=== PATIENT | male | born 1955 | race Caucasian/White ===

== ENCOUNTER 2020-09-18 10:05 | Emergency (ER) | payer OTHER ==
[2020-09-18 10:12] VITALS: RESP 18; TEMP 98
--- NOTE | 2020-09-18 10:58 | ED ---
General Adult HPI - General Chief complaint: Dizziness Stated complaint: Chest pain, near syncope Time Seen by Provider: 09/18/20 10:10 Source: patient, RN notes reviewed, old records reviewed Mode of arrival: ambulatory Limitations: no limitations - History of Present Illness Initial comments: 64-year-old male presenting for evaluation of intermittent chest pain over the past several weeks. He had an episode this morning that woke him from sleep. T his sharp left-sided chest pain which became L and nonspecific. He has no known history of coronary artery disease. No known history of DVT or PE. He is otherwise quite healthy. He states that he's felt unwell for several months and believes he had coronavirus approximately 2 months ago. He was not tested at that time. He denies fever or cough currently. He denies abdominal pain nausea vomiting. He does also feel lightheaded and dizzy. Denies unilateral numbness or weakness. - Related Data Home Medications Medication Instructions Recorded Confirmed [id number] 2 tab PO Q6HR PRN 09/18/20 09/18/20 [Excedrin] Fluticasone Nasal [place] [Flonase 2 spr EA NOSTRIL DAILY 09/18/20 09/18/20 Nasal [place]] Gabapentin [Neurontin] 200 mg PO TID PRN 09/18/20 09/18/20 Loratadine 10 mg PO AC-BRKFST 09/18/20 09/18/20 Multivitamins, Thera [Multivitamin 1 tab PO DAILY 09/18/20 09/18/20 (formulary)] Allergies Allergy/AdvReac Type Severity Reaction Status Date / Time hydrocodone AdvReac Head pain Verified 09/18/20 12:02 tramadol [From Ultram] AdvReac Head pain Verified 09/18/20 12:02 Review of Systems ROS Statement: Those systems with pertinent positive or pertinent negative responses have been documented in the HPI. ROS Other: All systems not noted in ROS Statement are negative. Past Medical History Additional Past Medical History / Comment(s): neuropathy, vertigo History of Any Multi-Drug Resistant Organisms: None Reported Past Surgical History: Cholecystectomy, Hernia Repair, Tonsillectomy Additional Past Surgical History / Comment(s): renal, B inguinial hernia Past Psychological History: No Psychological Hx Reported Smoking Status: Never smoker Past Alcohol Use History: None Reported Past Drug Use History: None Reported General Exam Limitations: no limitations General appearance: alert, in no apparent distress Head exam: Present: atraumatic, normocephalic Eye exam: Present: normal appearance, PERRL ENT exam: Present: normal exam. Absent: TM's normal bilaterally (Trace left effusion) Respiratory exam: Present: normal lung sounds bilaterally. Absent: respiratory distress, wheezes, rales, rhonchi, chest wall tenderness Cardiovascular Exam: Present: regular rate, normal rhythm GI/Abdominal exam: Present: soft. Absent: distended, tenderness, guarding, rebound Extremities exam: Present: normal inspection, normal capillary refill. Absent: pedal edema, calf tenderness Neurological exam: Present: alert, oriented X3, CN II-XII intact. Absent: motor sensory deficit Psychiatric exam: Present: normal affect, normal mood Skin exam: Present: warm, dry, intact. Absent: cyanosis, diaphoretic Course Vital Signs 09/18/20 09/18/20 10:09 11:13 Temperature 98 F Pulse Rate 84 70 Respiratory 18 18 Rate Blood Pressure 160/97 154/88 O2 Sat by Pulse 95 Oximetry EKG Findings - EKG Comments: EKG Findings:: EKG: Normal sinus rhythm with right bundle-branch block, no ST segment elevation, rate of 68, IA interval 142, QRS duration 138, QTC 467, no old for comparison. Medical Decision Making - Medical Decision Making 64-year-old male with presented with chest pain over the past several weeks. Patient believes that he did have coronavirus about 2 months ago. He denies current chest pain at the time my evaluation but has had some lightheadedness and dizziness. His stable vitals, he has a nonfocal neurologic exam. EKG showing a right bundle branch block with no comparison from prior. He has a normal CBC, normal CMP, he has a mildly elevated d-dimer 0.78. And CT angiogr aphy is performed which is negative for PE, showing 3 separate subcentimeter lung nodules which the patient is aware of from prior imaging. He has a negative initial troponin. We did discuss the possibility of admission for further evaluation, echo, cardiology consultation. Patient prefers discharge at this time. Second troponin is repeated which is also negative. Patient is given return parameters. He will follow with his primary care physician regarding both his symptoms and the lung nodule seen on CT. The patient is provided with CT imaging. - Lab Data Result diagrams: 09/18/20 11:04 09/18/20 11:03 Lab Results 09/18/20 09/18/20 09/18/20 Range/Units 11:03 11:03 11:03 WBC (3.8-10.6) k/uL RBC (4.30-5.90) m/uL Hgb (13.0-17.5) gm/dL Hct (39.0-53.0) % MCV (80.0-100.0) fL MCH (25.0-35.0) pg MCHC (31.0-37.0) g/dL RDW (11.5-15.5) % Plt Count (150-450) k/uL MPV Neutrophils % % Lymphocytes % % Monocytes % % Eosinophils % % Basophils % % Neutrophils # (1.3-7.7) k/uL Lymphocytes # (1.0-4.8) k/uL Monocytes # (0-1.0) k/uL Eosinophils # (0-0.7) k/uL Basophils # (0-0.2) k/uL PT 10.1 (9.0-12.0) sec INR 0.9 (<1.2) APTT 23.1 (22.0-30.0) sec D-Dimer 0.78 H (<0.60) mg/L FEU Sodium 141 (137-145) mmol/L Potassium 4.4 (3.5-5.1) mmol/L Chloride 107 (98-107) mmol/L Carbon Dioxide 28 (22-30) mmol/L Anion Gap 6 mmol/L BUN 18 (9-20) mg/dL Creatinine 1.16 (0.66-1.25) mg/dL Est GFR (CKD-EPI)AfAm 78 (>60 ml/min/1.73 sqM) Est GFR (CKD-EPI)NonAf 68 (>60 ml/min/1.73 sqM) Glucose 105 H (74-99) mg/dL Calcium 9.7 (8.4-10.2) mg/dL Magnesium 1.9 (1.6-2.3) mg/dL Total Bilirubin 0.5 (0.2-1.3) mg/dL AST 52 (17-59) U/L ALT 41 (4-49) U/L Alkaline Phosphatase 60 (38-126) U/L Troponin I <0.012 (0.000-0.034) ng/mL NT-Pro-B Natriuret Pep pg/mL Total Protein 7.7 (6.3-8.2) g/dL Albumin 4.5 (3.5-5.0) g/dL Lipase 143 (23-300) U/L Urine Color Urine Appearance (Clear) Urine pH (5.0-8.0) Ur Specific [place] (1.001-1.035) Urine Protein (Negative) Urine Glucose (UA) (Negative) Urine Ketones (Negative) Urine Blood (Negative) Urine Nitrite (Negative) Urine Bilirubin (Negative) Urine Urobilinogen (<2.0) mg/dL Ur Leukocyte Esterase (Negative) 09/18/20 09/18/20 09/18/20 Range/Units 11:03 11:04 11:41 WBC 5.6 (3.8-10.6) k/uL RBC 5.26 (4.30-5.90) m/uL Hgb 16.9 (13.0-17.5) gm/dL Hct 48.7 (39.0-53.0) % MCV 92.4 (80.0-100.0) fL MCH 32.1 (25.0-35.0) pg MCHC 34.7 (31.0-37.0) g/dL RDW 12.9 (11.5-15.5) % Plt Count 242 (150-450) k/uL MPV 7.0 Neutrophils % 60 % Lymphocytes % 22 % Monocytes % 9 % Eosinophils % 6 % Basophils % 1 % Neutrophils # 3.3 (1.3-7.7) k/uL Lymphocytes # 1.2 (1.0-4.8) k/uL Monocytes # 0.5 (0-1.0) k/uL Eosinophils # 0.3 (0-0.7) k/uL Basophils # 0.1 (0-0.2) k/uL PT (9.0-12.0) sec INR (<1.2) APTT (22.0-30.0) sec D-Dimer (<0.60) mg/L FEU Sodium (137-145) mmol/L Potassium (3.5-5.1) mmol/L Chloride (98-107) mmol/L Carbon Dioxide (22-30) mmol/L Anion Gap mmol/L BUN (9-20) mg/dL Creatinine (0.66-1.25) mg/dL Est GFR (CKD-EPI)AfAm (>60 ml/min/1.73 sqM) Est GFR (CKD-EPI)NonAf (>60 ml/min/1.73 sqM) Glucose (74-99) mg/dL Calcium (8.4-10.2) mg/dL Magnesium (1.6-2.3) mg/dL Total Bilirubin (0.2-1.3) mg/dL AST (17-59) U/L ALT (4-49) U/L Alkaline Phosphatase (38-126) U/L Troponin I (0.000-0.034) ng/mL NT-Pro-B Natriuret Pep 40 pg/mL Total Protein (6.3-8.2) g/dL Albumin (3.5-5.0) g/dL Lipase (23-300) U/L Urine Color Yellow Urine Appearance Clear (Clear) Urine pH 7.0 (5.0-8.0) Ur Specific [place] 1.027 (1.001-1.035) Urine Protein Trace H (Negative) Urine Glucose (UA) Negative (Negative) Urine Ketones Negative (Negative) Urine Blood Negative (Negative) Urine Nitrite Negative (Negative) Urine Bilirubin Negative (Negative) Urine Urobilinogen <2.0 (<2.0) mg/dL Ur Leukocyte Esterase Negative (Negative) 09/18/20 Range/Units 13:46 WBC (3.8-10.6) k/uL RBC (4.30-5.90) m/uL Hgb (13.0-17.5) gm/dL Hct (39.0-53.0) % MCV (80.0-100.0) fL MCH (25.0-35.0) pg MCHC (31.0-37.0) g/dL RDW (11.5-15.5) % Plt Count (150-450) k/uL MPV Neutrophils % % Lymphocytes % % Monocytes % % Eosinophils % % Basophils % % Neutrophils # (1.3-7.7) k/uL Lymphocytes # (1.0-4.8) k/uL Monocytes # (0-1.0) k/uL Eosinophils # (0-0.7) k/uL Basophils # (0-0.2) k/uL PT (9.0-12.0) sec INR (<1.2) APTT (22.0-30.0) sec D-Dimer (<0.60) mg/L FEU Sodium (137-145) mmol/L Potassium (3.5-5.1) mmol/L Chloride (98-107) mmol/L Carbon Dioxide (22-30) mmol/L Anion Gap mmol/L BUN (9-20) mg/dL Creatinine (0.66-1.25) mg/dL Est GFR (CKD-EPI)AfAm (>60 ml/min/1.73 sqM) Est GFR (CKD-EPI)NonAf (>60 ml/min/1.73 sqM) Glucose (74-99) mg/dL Calcium (8.4-10.2) mg/dL Magnesium (1.6-2.3) mg/dL Total Bilirubin (0.2-1.3) mg/dL AST (17-59) U/L ALT (4-49) U/L Alkaline Phosphatase (38-126) U/L Troponin I <0.012 (0.000-0.034) ng/mL NT-Pro-B Natriuret Pep pg/mL Total Protein (6.3-8.2) g/dL Albumin (3.5-5.0) g/dL Lipase (23-300) U/L Urine Color Urine Appearance (Clear) Urine pH (5.0-8.0) Ur Specific [place] (1.001-1.035) Urine Protein (Negative) Urine Glucose (UA) (Negative) Urine Ketones (Negative) Urine Blood (Negative) Urine Nitrite (Negative) Urine Bilirubin (Negative) Urine Urobilinogen (<2.0) mg/dL Ur Leukocyte Esterase (Negative) Disposition Clinical Impression: Chest pain, Pulmonary nodule Disposition: HOME SELF-CARE Condition: Good Instructions (If sedation given, give patient instructions): Chest Pain (ED), Pulmonary Nodules (ED) Additional Instructions: Please follow up with your primary care physician. Please return to the emergency department with any worsening or changing symptoms. Is patient prescribed a controlled substance at d/c from ED?: No Referrals: Robert Domínguez DO [Primary Care Provider] - 1-2 days Time of Disposition: 14:51
[2020-09-18 11:24] LABS: Basophils # (A) 0.1 k/uL (0-0.2); Basophils % (A) 1 %; Eosinophils # (A) 0.3 k/uL (0-0.7); Eosinophils % (A) 6 %; HCT 48.7 % (39.0-53.0); HGB 16.9 gm/dL (13.0-17.5); Lymphocytes # (A) 1.2 k/uL (1.0-4.8); Lymphocytes % (A) 22 %; MCH 32.1 pg (25.0-35.0); MCHC 34.7 g/dL (31.0-37.0); MCV 92.4 fL (80.0-100.0); Monocytes # (A) 0.5 k/uL (0-1.0); Monocytes % (A) 9 %; Neutrophils # (A) 3.3 k/uL (1.3-7.7); Neutrophils % (A) 60 %; Platelet Count 242 k/uL (150-450); RBC 5.26 m/uL (4.30-5.90); RDW 12.9 % (11.5-15.5); WBC 5.6 k/uL (3.8-10.6)
[2020-09-18 11:37] LABS: Albumin 4.5 g/dL (3.5-5.0); Calcium 9.7 mg/dL (8.4-10.2); Magnesium 1.9 mg/dL (1.6-2.3); Potassium 4.4 mmol/L (3.5-5.1); Total Bilirubin 0.5 mg/dL (0.2-1.3); Total Protein 7.7 g/dL (6.3-8.2)
[2020-09-18 11:46] LABS: INR 0.9 (<1.2); Partial Thromboplastin Time 23.1 sec (22.0-30.0); Prothrombin Time 10.1 sec (9.0-12.0)
[2020-09-18 11:51] LABS: Appearance,Urine Clear (Clear); Bilirubin,Urine Negative (Negative); Blood,Urine Negative (Negative); Color,Urine Yellow; Glucose,Urine (UA) Negative (Negative); Ketones,Urine Negative (Negative); Leukocyte Esterase,Urine Negative (Negative); Nitrite,Urine Negative (Negative); Protein,Urine Trace (Negative); Specific Gravity,Urine 1.027 (1.001-1.035); Urobilinogen,Urine <2.0 mg/dL (<2.0)
[2020-09-18 12:00] LABS: D-Dimer 0.78 mg/L FEU (<0.60)
--- NOTE | 2020-09-18 12:44 | XR ---
EXAMINATION TYPE: XR chest 2V DATE OF EXAM: 09/18/2020 COMPARISON: NONE TECHNIQUE: PA and lateral views submitted. HISTORY: Chest pain FINDINGS: The lungs are clear and there is no pneumothorax, pleural effusion, or focal pneumonia. Hypertrophi c and degenerative change of the spine. Surgical clips in the upper abdomen. No overt failure. Heart size normal. IMPRESSION: 1. No acute process.
[2020-09-18] MEDS ORDERED: SODIUM CHLORIDE 0.9% 1,000 ML IV ONE (13:33)
--- NOTE | 2020-09-18 14:31 | CT ---
EXAMINATION TYPE: CT angio chest DATE OF EXAM: 09/18/2020 1:38 PM COMPARISON: None. HISTORY: Chest pains CT DLP: 514.6 mGycm Automated exposure control for dose reduction was used. CONTRAST: CTA scan of the thorax is performed with IV Contrast, patient injected with 100 mL of Isovue 370, pul monary embolism protocol. MIP images are created and reviewed. FINDINGS: LUNGS: Exam suboptimal as patient unable to hold breath, this limits evaluation for subcentimeter nod ules. There are however 2 posterior right lower lobe nodules image 82, largest measures 8 x 5 mm. The re is 7 x 5 mm left lower lobe nodule axial image 76. Dependent atelectasis in both lower lungs. No f ocal consolidation. No pleural effusion or pneumothorax. [id number] bibasilar linear scarring a nd/or atelectasis. MEDIASTINUM: There is near equal contrast in the right and left heart systems but there is no CT patricio dence for acute pulmonary embolism. There are slightly prominent prevascular and AP window lymph nod es along with subcarinal lymph node. No pericardial effusion is seen. Mild cardiomegaly. Mild left ventricular dilatation. Mild to moderate right atrial dilatation. Satisfactory enhancement of the asc ending aorta without aneurysm or dissection. OTHER: Small sized hiatal hernia. Cholecystectomy clips. IMPRESSION: 1. Suboptimal study without acute pulmonary embolism. 2. Low lung volumes and mild cardiomegaly without suspicious acute pulmonary process. Small scattered bibasilar subcentimeter nodules, hematogenous metastatic disease cannot be excluded. Correlate clini deanne. At minimum short-term chest CT follow-up in 3-6 months time is advised to reassess.
[2020-09-18 15:11] VITALS: BP 156/88; PULSE 75
== END 2020-09-18 15:10 | disposition home or self-care (01) ==
LOC: EC 10:05
DX: R91.1 Solitary pulmonary nodule (principal); Z90.49 Acquired absence of other specified parts of digestive tract; Z90.09 Acquired absence of other part of head and neck
CPT/HCPCS: 36415; 93005; 85379; 83880; 80053; 83690; 83735; 84484; 85025; 85610; 85730; 81003; 71046; 71275; 99285; Q9967